=== PATIENT | male | born 1965 | race Caucasian/White ===

== ENCOUNTER 2016-08-07 19:09 | Emergency (ER) | payer BC ==
[2016-08-07] MEDS ORDERED: KETOROLAC TROMETHAMINE 60 MG/2 ML VIAL IM ONE ×2 (19:48→19:54)
--- NOTE | 2016-08-07 19:49 | ERNOTE ---
Lower Extremity HPI - Narrative Date of Service: 08/07/16 - General Lower Extremities Pain: knee: left Time Seen by Provider: 08/07/16 19:37 Source: patient, family, RN notes reviewed Exam Limitations: no limitations - Immun/Allergies/Home Medications Immunizations: IMMUNIZATION HX Immunizations Up to Date Yes History of Influenza Vaccine Yes Allergies/Adverse Reactions: Allergies Allergy/AdvReac Type Severity Reaction Status Date / Time STEWART Inhibitors Allergy Intermediate ANGIOEDEMA Verified 08/07/16 19:16 Penicillins Allergy Intermediate HIVES, Verified 08/07/16 19:16 RASH, SOB clarithromycin [From Biaxin] AdvReac Intermediate LIGHTHEADED, Verified 19:16 CLAMMY Home Medications: HOME MEDICATIONS Montelukast Sodium [Singulair] 10 mg PO DAILY 08/27/12 [Last Taken 02/22/14] Potassium Chloride [Klor-Con 10] 20 meq PO DAILY 08/27/12 [Last Taken 02/22/14] Pravastatin Sodium [Pravachol] 80 mg PO HS 08/27/12 [Last Taken 02/22/14] Ascorbic Acid [Vitamin C] 500 mg PO DAILY 02/22/14 [Last Taken 02/22/14] metFORMIN HCL [Glucophage] 500 mg PO HS 02/22/14 [Last Taken 02/22/14] Aspirin [Aspirin Enteric Coated] 81 mg PO DAILY #30 tab 02/23/14 [Last Taken Unknown] Atenolol/Chlorthalidone [Tenoretic 100/25] 1 tab PO DAILY 11/24/14 [Last Taken Unknown] Blood Sugar Diagnostic, Drum [Accu-Chek Compact] 1 each MC DAILY 11/24/14 [Last Taken Unknown] Cholecalciferol (Vitamin D3) [Vitamin D] 1,000 unit PO DAILY 11/24/14 [Last Taken Unknown] Lisinopril [Prinivil] 20 mg PO HS 11/24/14 [Last Taken 02/28/15 18:00] Tadalafil [Cialis] 5 mg PO DAILY 11/24/14 [Last Taken Unknown] Ranitidine HCl [Zantac] 300 mg PO BID 02/16/15 [Last Taken Unknown] Wheat Dextrin [Benefiber] 2 tsp PO AC 02/16/15 [Last Taken Unknown] Sucralfate [Carafate] 1 gm PO PRN 05/08/15 [Last Taken Unknown] Sulfamethoxazole/Trimethoprim [Bactrim Ds] 1 tab PO BID 05/08/15 [Last Taken Unknown] - History of Present Illness Narrative: 50 y/o male ambulatory to the ED on crutches for left knee pain. He believes he hyperextended his knee 4 days ago when he lost his footing to avoid falling over an object in his way. He woke up with pain in the posterior aspect of the knee the next day. The pain became much worse today without any incident. It is now diffuse through the distal thigh to the lower leg, being the most severe in the anterior tibial region. He has taken ibuprofen with some relief, but none since this morning. He denies any prior problems with this extremity. Subsequent Symptoms: Denies: sensory loss, numbness, motor loss Prior Treament: Denies: recently seen, similar symptoms before Review of Systems - Review of Systems Constitutional: Absent: recent illness, fever, chills, malaise EYE: Present: no symptoms reported ENT: Present: no symptoms reported Respiratory: Absent: shortness of breath, cough Cardiology: Absent: chest pain, edema Gastrointestinal/Abdominal: Absent: nausea, abdominal pain Genitourinary: Present: no symptoms reported Musculoskeletal: Present: muscle pain. Absent: muscle stiffness, joint pain, joint swelling Skin: Absent: lesions, lumps, change in color Neurological: Absent: headache, dizziness/light-headedness, weakness, numbness, tingling Endocrine: Present: no symptoms reported Hematologic/Lymphatic: Absent: easy bruising, easy bleeding Psych: Present: no symptoms reported - Patient's Past Medical History Patient History - Medical: Diabetes Type 2, GERD, Other Patient History - Cardiac/Respiratory: Hypertension, Hyperlipidemia Patient History - Cancer: No Hx of Cancer Patient History - Surgical Procedures: Cholecystectomy, Colonoscopy, Ear Tubes, T & A Patient History - Other: None - Family History Father Family History - Cardiac/Respiratory: Hypertension, Other Grandfather-Paternal Family History - Cardiac/Respiratory: Coronary Heart Disease Mother Family History - Medical: Diabetes Type 2 Family History - Cardiac/Respiratory: Hypertension Aunt Family History - Cardiac/Respiratory: Coronary Heart Disease - Social History Living Situations: spouse Abuse History: No History of abuse Psych History: Hx of Anxiety Smoking Status: Current every day smoker Cigarettes Packs Per Day: 1 Patient requests Smoking Cessation Consult: No Initiate information on Smoking Cessation: No Alcohol Use: occasionally Drug Use: none, other - Immunizations Immunizations Up to Date: Yes History of Influenza Vaccine: Yes Physical Exam - Physical Exam General Appearance: Present: wd/wn, alert, other - appears uncomfortable but is pleasant, appropriately dressed/groomed Respiratory: Present: no respiratory distress, normal breath sounds, no accessory muscle use, lungs clear Cardiovascular/Chest: Present: regular rate, rhythm, no murmur, normal peripheral pulses Peripheral Pulses: N=norm/S=strong/W=weak/B=bound/A=absent: Dorsalis-pedis (L): Strong Extremity Exam: Present: no edema, decreased range of motion - Left knee - painful, other - diffuse tenderness throughout left knee and lower leg, no discoloration or deformity. Absent: joint redness, joint swelling, extremity edema Neurological Exam: Present: alert, oriented, normal mood/affect, no motor/ sensory deficits Skin Exam: Present: normal color, warm/dry ED Progress - Results and Orders Patient's Lab Results:: I have reviewed the patient's lab results. - Vital Signs Patient's Vital Signs:: I have reviewed the patient's vital signs. Vital Signs: Vital Signs 08/07/16 19:12 Temperature 36.3 C L Pulse Rate 66 Respiratory 20 Rate Blood Pressure 129/83 O2 Sat by Pulse 96 Oximetry - X-Ray X-Ray #1 X-Ray: knee Interpretation: Reviewed by me X-ray Comments: Technique: AP, oblique, and lateral views of the knee were obtained. Findings: The joint spaces are maintained. The patella is normally positioned on the AP and lateral projections. I do not see evidence for fracture, dislocation, or significant degenerative spurring. There is a small joint effusion. If there is clinical concern for internal derangement, followup MRI is recommended. IMPRESSION: 1. SMALL JOINT EFFUSION. 2. NO ACUTE OSSEOUS ABNORMALITY. Electronically signed by Tutu Dangelo M.D.. - CT/Ultrasound CT/Ultrasound Narrative: US of LLE negative for DVT - Progress/Reassessment Chief Complaint: Lower Extremity Pain/ Injury Progress:: Improved Departure Clinical Impression: Knee pain, left Qualifiers: Chronicity: acute Qualified Code(s): M25.562 - Pain in left knee - Departure Disposition: Home Follow Up Needed Condition: Stable Instructions: Knee Pain Additional Instructions: Continue ibuprofen for pain - 600 mg (3 tablets) every 6 hours as needed with food Ice, elevate, wear support and use crutches as needed Contact orthopedics tomorrow regarding follow-up Referrals: Bill Prabhakar MD [Staff Physician] -
[2016-08-07 20:04] LABS: Hematocrit 48.2 % (42.0-52.0); Hemoglobin 16.2 gm/dL (13.5-18.0); Mean Cell Volume 97.6 fl (78-100); Mean Corpuscular Hemoglobin 32.8 pg (27-31); Mean Corpuscular Hgb Conc 33.6 g/dl (32-36); Mean Platelet Volume 9.9 fl (6.0-9.5); Neutrophil # 7.4 K/mm3 (1.3-6.0); Neutrophil % 60.8 % (42-75.0); Platelet Count 157 K/mm3 (150-450); Red Blood Count 4.94 M/mm3 (4.7-6.0); White Blood Count 12.2 K/mm3 (4.0-10.5)
[2016-08-07 20:18] LABS: Albumin * 3.7 gm/dl (3.4-5.0); Anion Gap 14.6 mmol/L (6.8-13.8); BUN/Creatinine Ratio 15.1 (9.0-21.6); Bilirubin, Total 0.6 mg/dL (0.0-1.1); Ca. Corrected For Albumin 9.4 mg/dL (8.4-10.2); Calcium * 9.5 mg/dL (7.9-10.9); Carbon Dioxide 25.2 mmol/L (24-32.6); Potassium 3.8 mmol/L (3.4-4.6); Total Protein 7.4 gm/dL (6.2-8.2)
[2016-08-07 22:04] VITALS: BP 131/69
== END 2016-08-07 22:09 | disposition home or self-care (01) ==
LOC: ER 19:09
DX: M25.562 Pain in left knee (principal); F17.210 Nicotine dependence, cigarettes, uncomplicated

== ENCOUNTER 2016-09-05 06:35 | Day surgery (SDC) | payer BC ==
[~2016-09-05 06:35] MED LIST: CLINDAMYCIN PHOSPHATE 900 MG in DEXTROSE 5 % IN WATER 100 ML IV PRN; RINGERS SOLUTION,LACTATED 1,000 ML IV PRN; ROPIVACAINE HCL/PF 40 MG in NORMAL SALINE 16 ML IJ PRN
[2016-09-05] MEDS ORDERED: BUPIVACAINE HCL/EPINEPHRINE 50 ML VIAL IJ ONE (08:02)
--- NOTE | 2016-09-05 08:40 | OR ---
Operative Report - Dictated Report Narrative: Date: 09/05/2016 Physician: Bill Prabhakar M.D. Narrow Gauge Engineer: Efra Day PA-C Preoperative diagnosis: Left Knee medial meniscus tear Postoperative diagnosis: Left Knee medial meniscus tear Procedure: Left knee arthroscopy with partial medial meniscectomy, chondroplasty of the medial femoral condyle Anesthesia: MAC Plus local Complications: None Estimated blood loss: Minimal Tourniquet time: 28 minutes at 300 mmHg Specimens: None Retained implants: None Drains: None Indications: Bernard Is a 50 year-old male who has been followed in my clinic with complaints of knee pain consistent with suspected medial meniscal pathology. Physical exam and diagnostic imaging were consistent with these complaints and concern for medial meniscal pathology. Conservative measures have failed including, but not limited to, passage of time, activity modification, and medications. The risks, benefits, and alternatives were discussed in clinic. The risks being , bleeding, infection, blood clots, nerve, tendon, ligament, blood vessel injury, persistent pain, arthrosis, need for additional procedures, and persistent symptoms. Consent was obtained in the clinic. Procedure: After marking the correct extremity in the preoperative holding area, a timeout was performed in the operating room. IV antibiotics consisting of 2 g of Ancef were administered prior to the procedure. A well-padded tourniquet was applied to the operative upper thigh. The leg was prepped and draped in a standard sterile fashion. 0.5% Marcaine with epinephrine was infused into the projected portal sites as well as the intra-articular space. The operative leg was then exsanguinated with gravity and the tourniquet was inflated to 300 mmHg. A yesy incision was made for inferior lateral portal. A blunt trocar and cannula was introduced into the knee. The suprapatellar pouch revealed no loose bodies. The medial patella facet showed mild grade 1 and grade 2 chondral changes. The lateral patella facet showed grade 2 and grade 3 chondral changes. The trochlea showed grade 1 chondral changes. The medial gutter revealed no loose bodies. The medial joint space was then entered utilizing a lateral post and valgus stress. A spinal needle was utilized for guidance into placement of an anterior medial portal. This was placed just superior to the medial meniscus ensuring that we could reach the posterior aspect of the medial joint space. A yesy incision was made in the site, and the probe was introduced to the knee. The medial joint space was examined, and the medial femoral condyle showed grade 2 and grade 3 chondral changes of the weightbearing portion with several loose cartilage flaps. The medial tibial plateau showed grade 1 and grade 2 chondral changes. The medial meniscus was extensively probed and found to have a complete tear at the posterior root attachment as well as a partial radial tear at the junction of the body and the posterior horn. The notch was then examined, and the ACL was noted to be intact. The PCL was noted to be intact. The lateral joint space was then examined using a varus force in the figure 4 position. Lateral femoral condyle showed no significant chondral changes. Lateral tibial plateau showed grade 1 chondral changes. The lateral meniscus showed no pathology. The lateral gutter showed no loose bodies. Having identified the surgical pathology, a series of biters and alma were utilized in order to debride the medial meniscus. Given the patient's age, his weight, and the existing degenerative changes in his knee he was not considered a good candidate for posterior root repair. Once it was felt that we adequately addressed the pathology, the knee was thoroughly irrigated. The fluid was evacuated ensuring that we have removed all meniscal, chondral, and any other loose bodies. A final evaluation of the joint showed no additional pathology. The fluid was then evacuated of the knee, and the trocar and camera were removed from the joint. The wounds were closed with interrupted nylon after placing 20 mL of 0.2% ropivacaine into the joint. Dressings consisting of Xeroform, 4 x 4, ABD, soft roll, and an Tin were applied. All sponge, needle, blade, and instrument counts were correct prior to closing the wounds. The patient was awoken and transferred to the post-anesthesia care unit in stable condition.
[2016-09-05 09:45] VITALS: BP 122/65
== END 2016-09-05 06:36 | disposition home or self-care (01) ==
LOC: AMB 06:35
PROVIDERS: ATTEND Orthopaedic Surgery
PROC: 0SBD4ZZ Excision of Left Knee Joint, Percutaneous Endoscopic Approach (ICD-10-PCS; principal; 2016-09-05 08:00)
DX: M23.222 Derangement of posterior horn of medial meniscus due to old tear or injury, left knee (principal); E11.9 Type 2 diabetes mellitus without complications; I10 Essential (primary) hypertension; E78.00 Pure hypercholesterolemia, unspecified; J45.30 Mild persistent asthma, uncomplicated; K21.9 Gastro-esophageal reflux disease without esophagitis; G47.33 Obstructive sleep apnea (adult) (pediatric); Z87.891 Personal history of nicotine dependence; Z68.41 Body mass index [BMI] 40.0-44.9, adult